=== PATIENT | male | born 1955 | race Hispanic/Latino ===

== ENCOUNTER 2025-02-19 16:31 | Emergency (ER) | payer OTHER, SELFPAY ==
[2025-02-19] MEDS ORDERED: Fluorescein Opthalmic Strip ONE (17:12)
[2025-02-19] MEDS ORDERED: Tetracaine 0.5% PF 4 ML BOT ONE (17:12)
== END 2025-02-19 17:55 | disposition home or self-care (01) ==
LOC: CSHERS 16:31
DX: S05.01XA Injury of conjunctiva and corneal abrasion without foreign body, right eye, initial encounter (principal); I10 Essential (primary) hypertension; X58.XXXA Exposure to other specified factors, initial encounter
CPT/HCPCS: 99283